=== PATIENT | female | born 1955 | race African-American/Black ===

== ENCOUNTER 2017-10-30 15:08 | Emergency (ER) | payer MEDICARE, MEDICAID ==
[~2017-10-30] VITALS: Ht 162.6 cm; Wt 140.9 kg
[~2017-10-30 15:08] MED LIST: ALBU1.257 NEB; ALBU8.5H8 IH; CLON1TAB10 PO; FURO-149 PO; LEVO40CA PO; PALI546S IM; POTA10TA36 PO; USTE90DI SQ
[2017-10-30 15:27] VITALS: BP 150/80
[2017-10-30] MEDS ORDERED: cyclobenzaprine 10mg tablet PO ONE (16:50)
[2017-10-30] MEDS ORDERED: HYDROcodone/acetaminophen 5mg/325mg tablet PO ONE (16:50)
[2017-10-30] MEDS ORDERED: ondansetron 4mg rapidly disintigrating tab PO ONE (16:50)
[2017-10-30] MEDS ORDERED: ketorolac trometh inj. 60 MG/2 ML VIAL IM ONE (16:50)
[2017-10-30] MEDS ORDERED: CYCL-1 PO (16:55)
[2017-10-30] MEDS ORDERED: HYDR-3965 PO (16:55)
[2017-10-30] MEDS ORDERED: MELO-100 PO (16:55)
== END 2017-10-30 17:36 | disposition home or self-care (01) ==
LOC: ER 15:09
DX: M54.9 Dorsalgia, unspecified (principal); F12.90 Cannabis use, unspecified, uncomplicated; Z86.19 Personal history of other infectious and parasitic diseases; Z56.0 Unemployment, unspecified; Z95.1 Presence of aortocoronary bypass graft; Z98.890 Other specified postprocedural states; Z79.899 Other long term (current) drug therapy; V87.7XXA Person injured in collision between other specified motor vehicles (traffic), initial encounter; Y93.89 Activity, other specified; Y92.410 Unspecified street and highway as the place of occurrence of the external cause; Y99.8 Other external cause status
CPT/HCPCS: 96372; 99284; J1885

== ENCOUNTER 2017-11-02 07:26 | Emergency (ER) | payer MEDICARE, MEDICAID ==
[~2017-11-02] VITALS: Ht 565.3 cm; Wt 142.0 kg
[~2017-11-02 07:26] MED LIST changes: +CYCL-1 PO; +HYDR-3965 PO; +MELO-100 PO
[2017-11-02 07:41] VITALS: BP 153/94
[2017-11-02] MEDS ORDERED: WALKERFR (08:52)
== END 2017-11-02 09:00 | disposition home or self-care (01) ==
LOC: ER 07:27
DX: M54.2 Cervicalgia (principal); M54.5 Low back pain; F12.90 Cannabis use, unspecified, uncomplicated; Z56.0 Unemployment, unspecified
CPT/HCPCS: 99284

== ENCOUNTER 2019-02-07 01:20 | Outpatient (CLI) | payer MEDICARE, MEDICAID ==
[~2019-02-07 01:20] MED LIST changes: +CLIN150C8 PO; -HYDR-3965 PO; +WALKERFR
== END 2019-02-07 23:59 | disposition home or self-care (01) ==
LOC: DIABETIC 01:20
PROVIDERS: ATTEND Surgery
DX: E66.01 Morbid (severe) obesity due to excess calories (principal)
CPT/HCPCS: 97802

== ENCOUNTER 2019-03-12 06:45 | Outpatient (CLI) | payer MEDICARE, MEDICAID | END 2019-03-12 23:59 | disposition home or self-care (01) | LOC: DIABETIC 06:45 | PROVIDERS: ATTEND Surgery | DX: Z71.3 Dietary counseling and surveillance (principal); E66.01 Morbid (severe) obesity due to excess calories; Z68.43 Body mass index [BMI] 50.0-59.9, adult; I10 Essential (primary) hypertension; K21.9 Gastro-esophageal reflux disease without esophagitis; Z79.899 Other long term (current) drug therapy | CPT/HCPCS: 97803 ==